=== PATIENT | male | born 1960 ===

== ENCOUNTER 2021-01-16 16:48 | Inpatient (IN) | payer OTHER ==
[2021-01-16] VITALS (69 sets, daily range): BP systolic 130; BP diastolic 77; PULSE 108; TEMP 97.7; O2SAT 92–98
[~2021-01-16] VITALS: Ht 170.2 cm; Wt 141.6 kg
--- NOTE | 2021-01-16 19:53 | NUR ---
Received report from PREM Rankin. Patient in contact/droplet precautions d/t positive covid diagnosis. All medications verified and questions answered. VSS. Will resume care at this time.
[2021-01-16 19:58] LABS: INR 1.2 (0.8-3.0)
[2021-01-16 20:00] LABS: BILIRUBIN,TOTAL 0.8 mg/dL (0.0-1.0); CALCIUM 9.3 mg/dL (8.4-10.2); CREATININE, serum 1.25 (0.66-1.25); POTASSIUM 5.1 mmol/L (3.4-5.0); TOTAL PROTEIN 7.6 gm/dL (6.4-8.2)
[2021-01-16 20:02] LABS: HEMATOCRIT 49.9 % (42.0-52.0); HEMOGLOBIN 16.7 g/dl (13.5-18.0); MEAN CELL VOLUME 87 fl (80.0-100.0); MEAN CORPUSCULAR HEMOGLOBIN 29 pg (27.0-31.0); MEAN CORPUSCULAR HGB CONC 34 g/dl (33.0-37.0); MEAN PLATELET VOLUME 10.4 fl (7.4-10.4); PLATELET COUNT 328 K/mm3 (130-400); RED BLOOD COUNT 5.72 M/mm3 (4.20-5.60); REDCELL DISTRIBUTION WIDTH-CV 14.8 % (11.5-14.5)
[2021-01-16 20:55] LABS: TROPONIN-I 0.138 ng/mL (0.000-0.035)
--- NOTE | 2021-01-16 21:12 | NUR ---
BRYANNA Lopez notified of patients critical toponin level. BRYANNA stated she would put in orders for repeat troponin.
--- NOTE | 2021-01-16 23:32 | NUR ---
Received critical lab result for patient troponin. Physician not noted d/t level trending down.
--- NOTE | 2021-01-16 23:55 | NUR ---
Received call from lab regarding critical troponin level for patient. Physician not notified d/t level trending down.
[2021-01-17] VITALS (596 sets, daily range): BP systolic 118–138; BP diastolic 75–95; PULSE 91–113; TEMP 97.5–98.5; O2SAT 77–100
[2021-01-17] MEDS ORDERED: PRINIVIL2.5 MG PO (00:27)
[2021-01-17] MEDS ORDERED: SINGULAIR 110 MG/TAB (00:27)
[2021-01-17] MEDS ORDERED: ZYRTEC5 MG (00:28)
[2021-01-17] MEDS ORDERED: GLUCOPHAGE500 MG/TAB PO (00:28)
--- NOTE | 2021-01-17 03:21 | NUR ---
Physician not notified of recent troponin critical value d/t troponin level trending down.
[2021-01-17 03:31] LABS: ARTERIAL BLD GAS O2 SATURATION 85.8 % (92-100); ARTERIAL BLOOD GAS BASE EXCESS -2.8 (-2-2); ARTERIAL BLOOD GAS PO2 51.7 mmHg (80-100); ARTERIAL BLOOD GAS pH 7.41 (7.35-7.45)
--- NOTE | 2021-01-17 06:33 | NUR ---
0227 GAVE PATIENT HFA, PUT ON CPAP. WITH A 6LPM BLEED IN. 0330 ABG OBTAINED 0350 PT PLACED ON BIPAP AT THIS TIME DUE TO ABG RESULTS. NO DISTRESS NOTED AT THIS TIME.
[2021-01-17 06:58] LABS: BASO % 0.2 % (0.0-2.0); EOS % 0.1 % (0-4.0); GRAN % 66.7 % (42.2-75.2); HEMATOCRIT 45.9 % (42.0-52.0); HEMOGLOBIN 15.7 g/dl (13.5-18.0); LYMPH # 2.9 (1.2-3.4); LYMPH % 24.4 % (20.0-51.0); MEAN CELL VOLUME 86 fl (80.0-100.0); MEAN CORPUSCULAR HEMOGLOBIN 29 pg (27.0-31.0); MEAN CORPUSCULAR HGB CONC 34 g/dl (33.0-37.0); MEAN PLATELET VOLUME 10.3 fl (7.4-10.4); MONO # 0.9 (0.1-0.6); MONO % 7.6 % (1.7-9.3); PLATELET COUNT 294 K/mm3 (130-400); RED BLOOD COUNT 5.36 M/mm3 (4.20-5.60); REDCELL DISTRIBUTION WIDTH-CV 14.6 % (11.5-14.5)
--- NOTE | 2021-01-17 07:00 | NUR ---
RECEIVED REPORT FROM PREM THOMPSON. ASSUMED CARE OF PT AT THIS TIME.
[2021-01-17 07:27] LABS: CALCIUM 9.1 mg/dL (8.4-10.2); CREATININE, serum 1.02 (0.66-1.25); POTASSIUM 4.7 mmol/L (3.4-5.0)
[2021-01-17 07:35] LABS: TROPONIN-I 0.1 ng/mL (0.000-0.035)
--- NOTE | 2021-01-17 07:45 | NUR ---
ATTEMPTED TO CONTACT [facility] FOR PICC PLACEMENT. VOICEMAIL LEFT. WILL ATTEMPT TO CALL AGAIN IF CALL NOT RETURNED.
--- NOTE | 2021-01-17 08:03 | NUR ---
PT SITTING ON SIDE OF BED WITH 70% ON BIPAP. STATES HE FEELS MORE COMFORTABLE SITTING UP. PT ALERT/ORIENTED X4. HEPARIN GTT REMAINS ON STANDBY UNTIL REPEAT HEP XA. 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 DR. CHILDERS AT BEDSIDE SPEAKING WITH PT.
[2021-01-17 08:34] LABS: PARTIAL THROMBOPLASTIN TIME 35.6 SECONDS (26.0-37.0)
--- NOTE | 2021-01-17 13:23 | NUR ---
The patient is on airbourne precautions. [employer] contacted the patient via cell phone to complete intake. The patient lives in [place] with his and their son. The patient is independent. He has a CPAP and oxygen at night. He does not know what is baseline oxygen use. The patient receives medical care and medications on [place]. The patient does not have advanced directives but was interested in a form. Form provided. The patient plans to return home with his family at discharge. The patient is currenlty on airvo. SW contacted the patient's to review the discharge plan, left message.
--- NOTE | 2021-01-17 18:30 | NUR ---
Received report from PREM Justice. All medications verified and all questions answered. Patient sitting on side of bed watching TV on iPad. VSS. Patient on AirVo. Will resume care at this time.
[2021-01-18] VITALS (611 sets, daily range): BP systolic 122–139; BP diastolic 78–100; PULSE 84–105; TEMP 97.5–99; O2SAT 67–100
[2021-01-18 06:53] LABS: ALBUMIN 3.2 gm/dL (3.5-5.0); BILIRUBIN,TOTAL 0.5 mg/dL (0.0-1.0); CALCIUM 8.8 mg/dL (8.4-10.2); CREATININE, serum 1.08 (0.66-1.25); POTASSIUM 4.6 mmol/L (3.4-5.0); TOTAL PROTEIN 6.4 gm/dL (6.4-8.2)
--- NOTE | 2021-01-18 07:00 | NUR ---
REPORT RECEIVED FROM JAY RN. PT ON AIRVO. WILL CONTINUE TO MONITOR.
[2021-01-18 07:01] LABS: BASO % 0.2 % (0.0-2.0); EOS % 0.1 % (0-4.0); GRAN # 10.2 (1.4-6.5); GRAN % 68.3 % (42.2-75.2); HEMATOCRIT 41.7 % (42.0-52.0); LYMPH # 3.5 (1.2-3.4); LYMPH % 23.6 % (20.0-51.0); MEAN CELL VOLUME 90 fl (80.0-100.0); MEAN CORPUSCULAR HEMOGLOBIN 29 pg (27.0-31.0); MEAN CORPUSCULAR HGB CONC 33 g/dl (33.0-37.0); MEAN PLATELET VOLUME 10.7 fl (7.4-10.4); MONO # 1.1 (0.1-0.6); MONO % 7.1 % (1.7-9.3); PLATELET COUNT 250 K/mm3 (130-400); RED BLOOD COUNT 4.66 M/mm3 (4.20-5.60); REDCELL DISTRIBUTION WIDTH-CV 14.7 % (11.5-14.5)
[2021-01-18 07:04] LABS: HEMOGLOBIN 13.6 g/dl (13.5-18.0)
--- NOTE | 2021-01-18 15:22 | NUR ---
SPOKE WITH [facility]. PT IS TO WEAR 6L OXYGEN BLEED IN WITH CPAP AT NIGHT.
--- NOTE | 2021-01-18 15:24 | NUR ---
SPOKE WITH JOHN IN INFECTION CONTROL. PT'S POSITIVE COVID RESULTS ARE FROM 01/06/21. OK FOR PT TO COME OUT OF ISOLATION. WILL EDUCATE PT ON WEARING MASK WHEN OTHERS ENTER THE ROOM.
--- NOTE | 2021-01-18 21:53 | NUR ---
Report recived from PREM Patel. Patient is a very nice gentleman. He denies any pain. His vitals are stable. Blood Pressure is currently 143/97. He voided 800 within the first four hours of the shift. But he has recieved two doses of lasix today. He voides and is independant. His blood sugar was 295 and he recieved 8units of insulin. He is currently in bed watching a movie with no complaints.
[2021-01-19] VITALS (382 sets, daily range): BP systolic 139–145; BP diastolic 82–96; PULSE 77–99; TEMP 97.7–98.2; O2SAT 74–100
[2021-01-19 04:46] LABS: BASO % 0.1 % (0.0-2.0); GRAN # 9.3 (1.4-6.5); GRAN % 72.7 % (42.2-75.2); HEMATOCRIT 41.4 % (42.0-52.0); LYMPH # 2.5 (1.2-3.4); LYMPH % 19.7 % (20.0-51.0); MEAN CORPUSCULAR HEMOGLOBIN 29 pg (27.0-31.0); MEAN CORPUSCULAR HGB CONC 34 g/dl (33.0-37.0); MEAN PLATELET VOLUME 10.5 fl (7.4-10.4); MONO # 0.9 (0.1-0.6); PLATELET COUNT 237 K/mm3 (130-400); RED BLOOD COUNT 4.85 M/mm3 (4.20-5.60); REDCELL DISTRIBUTION WIDTH-CV 14.4 % (11.5-14.5)
[2021-01-19 04:50] LABS: MEAN CELL VOLUME 85 fl (80.0-100.0)
[2021-01-19 04:53] LABS: CREATININE, serum 1.03 (0.66-1.25); POTASSIUM 4.5 mmol/L (3.4-5.0)
--- NOTE | 2021-01-19 07:05 | NUR ---
Patient had an uneventful night. He has been watching movies on his phone most of the night, he denies pain. His vitals have been stable. He is independent and stable on his feet. He stated he felt so much better and has more oxygen and energy to move around. He is currently sating 99% on 4L NC.
--- NOTE | 2021-01-19 07:15 | NUR ---
RECEIVED BEDSIDE REPORT FROM PREM HERNANDEZ. PATIENT RESTING IN BED WITH EYES CLOSED. O2 SET TO 3L. PICC LINE CONFIRMED IN PLACE IN RIGHT ARM.
--- NOTE | 2021-01-19 09:40 | NUR ---
DR CHILDERS AT BEDSIDE WITH PATIENT. STATED IF DR ONEILL WAS OKAY WITH DISCHARGE, PATIENT COULD GO HOME TODAY. DR ONEILL AGREEABLE AND CONFIRMED ABOUT DISCHARGE.
--- NOTE | 2021-01-19 09:45 | NUR ---
SPOKE WITH DR CHASE REGARDING CURRENT PATIENT STATUS. NO NEW ORDERS AT THIS TIME.
--- NOTE | 2021-01-19 09:55 | NUR ---
DAYANA WITH RESPIRATORY ADJUSTED PATIENT'S OXYGEN LEVEL TO 3L.
[2021-01-19] MEDS ORDERED: ELIQUIS 5MG PO (10:21)
[2021-01-19] MEDS ORDERED: PROAIR HFA0.09 MG/AC IH (10:22)
[2021-01-19] MEDS ORDERED: DECADRON6 MG PO (10:23)
--- NOTE | 2021-01-19 10:30 | NUR ---
PHARMACY AT BEDSIDE WITH PATIENT.
--- NOTE | 2021-01-19 14:45 | NUR ---
SPOKE TO DR ONEILL REGARDING PICC REMOVAL. ORDERS RECEIVED.
--- NOTE | 2021-01-19 14:50 | NUR ---
The patient is to discharge home today, 01/19 with continous oxygen at 5L. The patient receives supplies from [facility] and would like to use [facility] for his oxygen. Referral sent. 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 The patient was in agreeance. The patient is independent. There are no additional needs.
--- NOTE | 2021-01-19 15:05 | NUR ---
PICC LINE REMOVED BY PREM RODRIGUEZ SAFELY
--- NOTE | 2021-01-19 18:05 | NUR ---
SPOKE TO PATIENT REGARDING DISCHARGE INSTRUCTIONS, NEW MEDICATIONS, HOME OXYGEN AND FOLLOW UP APPOINTMENTS. ALL QUESTIONS ADDRESSED AND ANSWERED. GATHERED ALL PATIENT'S PERSONAL BELONGINGS AND SET UP OXYGEN IN PLACE ON 5L. TRANSPORT PATIENT TO ER ENTRANCE VIA WHEELCHAIR WHERE HE WAS PICKED UP BY . SAFELY TRANSPORTED TO CAR.
== END 2021-01-19 18:05 | disposition home or self-care (01) | DRG 175 ==
LOC: ICU 16:48
PROVIDERS: Student in an Organized Health Care Education/Training Program; ADMIT Hospitalist
PROC: 02HV33Z Insertion of Infusion Device into Superior Vena Cava, Percutaneous Approach (ICD-10-PCS; principal; 2021-01-17)
DX: I26.99 Other pulmonary embolism without acute cor pulmonale (principal); J96.01 Acute respiratory failure with hypoxia; I21.A1 Myocardial infarction type 2; N17.9 Acute kidney failure, unspecified; E66.2 Morbid (severe) obesity with alveolar hypoventilation; I10 Essential (primary) hypertension; E11.65 Type 2 diabetes mellitus with hyperglycemia; K59.00 Constipation, unspecified; Z86.16 Personal history of COVID-19; Z87.891 Personal history of nicotine dependence
CPT/HCPCS: 99223-AI; 99232-AI; 99239; C1751; C1892; J1644; J1815; J7050; J8540